=== PATIENT | male | born 1965 | race Caucasian/White ===

== ENCOUNTER 2022-11-22 18:35 | Emergency (ER) | payer BC, OTHER ==
[2022-11-22 18:55] VITALS: BP 126/89; PULSE 71; RESP 20; TEMP 98; BMI 35.6
[2022-11-22] MEDS ORDERED: CEPHALEXIN MONOHYDRATE 500 MG CAPSULE (UD) PO ONE (20:04)
[2022-11-22] MEDS ORDERED: DIPHTH,PERTUSS(ACELL),TET 0.5 ML DISP.SYRIN IM ONE ×2 (20:05→20:08)
[2022-11-22] MEDS ORDERED: CEPHALEXIN MONOHYDRATE 500 MG CAPSULE (UD) ONE (20:08)
== END 2022-11-22 20:15 | disposition home or self-care (01) ==
LOC: FER 18:35
PROC: 0HQGXZZ Repair Left Hand Skin, External Approach (ICD-10-PCS; principal; 2022-11-22)
PROC: 3E0234Z Introduction of Serum, Toxoid and Vaccine into Muscle, Percutaneous Approach (ICD-10-PCS; 2022-11-22)
DX: S61.012A Laceration without foreign body of left thumb without damage to nail, initial encounter (principal); W26.0XXA Contact with knife, initial encounter
CPT/HCPCS: 90715; 99283-25

== ENCOUNTER 2024-12-30 06:16 | Inpatient (IN) | payer OTHER ==
[2024-12-25 13:02] VITALS: BMI 36.9
[2024-12-30] MEDS ORDERED: ONDANSETRON 4 MG/2 ML VIAL ONE (07:20)
[2024-12-30] MEDS ORDERED: LIDOCAINE HCL/PF 2% SDV 5ML VIAL ONE (07:20)
[2024-12-30] MEDS ORDERED: DEXAMETHASONE SOD PHOSPHATE 4 MG/1 ML VIAL ONE (07:20)
[2024-12-30] MEDS ORDERED: ceFAZolin SODIUM 1 GM VIAL ONE ×2 (07:20→07:26)
[2024-12-30] MEDS ORDERED: PROPOFOL 160 ML ONE (07:21)
[2024-12-30] MEDS ORDERED: MIDAZOLAM HCL 2 MG/2 ML SINGLE DOSE VIAL ONE (07:21)
[2024-12-30] MEDS ORDERED: KETAMINE HCL 200 MG/20 ML VIAL ONE (07:24)
[2024-12-30] MEDS ORDERED: THROMBIN (BOVINE) 20,000 UNIT VIAL TP ONE (07:26)
[2024-12-30] MEDS ORDERED: ROCURONIUM BROMIDE 50 MG/5 ML VIAL ONE (07:35)
[2024-12-30] MEDS ORDERED: SUCCINYLCHOLINE CHLORIDE 200 MG/10 ML SYRINGE ONE (07:35)
[2024-12-30] MEDS ORDERED: ONDANSETRON 4 MG/2 ML VIAL IVPUSH PRN (08:00)
[2024-12-30] MEDS: ceFAZolin SODIUM 1 GM VIAL IVPB ONE ×3 (08:24→10:01)
[2024-12-30] MEDS: THROMBIN (BOVINE) 20,000 UNIT VIAL TP ONE ×2 (08:25→10:01)
[2024-12-30] MEDS ORDERED: PROPOFOL 80 ML ONE (10:06)
[2024-12-30] MEDS: LACTATED RINGERS SOLUTION 1,000 ML IV SCH (14:00)
[2024-12-30] MEDS: oxyCODONE HCL 5 MG TABLET PO PRN (14:26)
[2024-12-30 15:13] VITALS: RESP 18
[2024-12-30] MEDS: CEFAZOLIN 2 GM/D5W 2 GM/50 ML ML IVPB SCH (17:51)
[2024-12-30] MEDS ORDERED: CEFAZOLIN SODIUM 2 GM in DEXTROSE 5%-WATER 100 ML IVPB SCH (18:00)
[2024-12-31] MEDS: ACETAMINOPHEN 500 MG TABLET (FP) PO PRN (01:28)
[2024-12-31 09:48] LABS: ABSOLUTE IMMATURE GRANULOCYTES 0.05 x10^3/uL (0.0-0.031); BASOPHILS # 0.02 x10^3/uL (0.01-0.08); HEMATOCRIT 45.1 % (40.1-51.0); HEMOGLOBIN 15.3 g/dL (13.7-17.5); MCHC 33.9 g/dl (32.3-36.5); MEAN CELL VOLUME 90.4 fl (79.0-92.2); MEAN PLT VOLUME 10.8 fl (9.4-12.4); MONOCYTE # 0.69 x10^3/uL (0.30-0.82); MONOCYTE % 6.6 % (5.3-12.2); PLATELET COUNT 213 x10^3/uL (163-337); RDW 11.9 % (12.2-16.1)
[2024-12-31 10:09] LABS: POTASSIUM 3.8 mmol/L (3.5-5.1)
[2024-12-31 10:11] LABS: CALCIUM 8.7 mg/dL (8.5-10.1)
[2024-12-31 10:12] LABS: ALBUMIN 3.6 g/dl (3.4-5.0); BLOOD UREA NITROGEN 11.2 mg/dL (7-18)
[2024-12-31 10:15] LABS: CREATININE 1.3 mg/dL (0.55-1.3)
[2024-12-31 10:17] LABS: BILIRUBIN,TOTAL 0.7 mg/dL (0.2-1); TOT PROT 6.5 g/dl (6.4-8.2)
[2024-12-31 17:04] VITALS: BP 115/77; PULSE 59; TEMP 97.7
== END 2024-12-31 17:52 | disposition home or self-care (01) | DRG 321 ==
LOC: JASU-SURG 06:16 → J2C 07:12 → J8W 14:18
PROVIDERS: ADMIT Neurological Surgery; ATTEND Family Medicine
PROC: 0RB30ZZ Excision of Cervical Vertebral Disc, Open Approach (ICD-10-PCS; 2024-12-30)
PROC: 01N10ZZ Release Cervical Nerve, Open Approach (ICD-10-PCS; 2024-12-30)
PROC: 00NW0ZZ Release Cervical Spinal Cord, Open Approach (ICD-10-PCS; 2024-12-30)
PROC: 0RG20A0 Fusion of 2 or more Cervical Vertebral Joints with Interbody Fusion Device, Anterior Approach, Anterior Column, Open Approach (ICD-10-PCS; 2024-12-30)
PROC: 4A11X4G Monitoring of Peripheral Nervous Electrical Activity, Intraoperative, External Approach (ICD-10-PCS; 2024-12-30)
PROC: 0RG20A0 Fusion of 2 or more Cervical Vertebral Joints with Interbody Fusion Device, Anterior Approach, Anterior Column, Open Approach (ICD-10-PCS; principal; 2024-12-30 08:00)
DX: M50.90 Cervical disc disorder, unspecified, unspecified cervical region (principal); G95.29 Other cord compression; M54.12 Radiculopathy, cervical region; M48.02 Spinal stenosis, cervical region; M40.292 Other kyphosis, cervical region
CPT/HCPCS: 36415; 72040-TC; 76000-TC-FY; 80053; 85025; 86850; 86900; 86901; 94010; 94760; 97116-GP; 97161-GP; C1713; C1889